=== PATIENT | male | born 1975 | race Caucasian/White ===

== ENCOUNTER 2018-11-15 19:59 | Emergency (ER) | payer SELFPAY ==
[2018-11-15 20:05] VITALS: BP 147/86
== END 2018-11-15 21:28 | disposition left against medical advice (07) ==
LOC: ED 19:59
DX: R42 Dizziness and giddiness (principal); Z53.21 Procedure and treatment not carried out due to patient leaving prior to being seen by health care provider

== ENCOUNTER 2019-08-27 20:14 | Emergency (ER) | payer SELFPAY ==
--- NOTE | 2019-08-27 20:24 | UC ---
FLU HPI - HPI Summary HPI Summary: 43yo male presenting with sore throat, body aches, chills, and cough with sternal chest discomfort x3 days. Patient notes subjective fevers. Denies sob and wheezing. States chest discomfort worse with deep breaths and coughing. Denies discomfort currently. Notes significant fatigue and decreased appetite. Denies n/v/d. States his significant other was diagnosed with URI a few weeks ago. Denies other ill contacts. Denies known exposure to covid 19. Patient works at [employer]. Notes h/o asthma as child that he states he grew out of. Smokes 1.5 packs every two days and vapes throughout the day everyday. - History of Current Complaint Stated Complaint: SORE THROAT, COUGH Hx Obtained From: Patient Pain Intensity: 5 Pain Scale Used: 0-10 Numeric - Allergy/Home Medications Allergies/Adverse Reactions: Allergies Allergy/AdvReac Type Severity Reaction Status Date / Time No Known Allergies Allergy Verified 08/27/19 20:18 Home Medications: Home Medications Azithromycin 250 mg PO DAILY #4 tablet 08/27/19 [Rx] PMH/Surg Hx/FS Hx/Imm Hx Respiratory History: Asthma - as a child - Surgical History Surgical History: Yes Surgery Procedure, Year, and Place: left wrist - Family History Known Family History: Positive: Non-Contributory - Social History Alcohol Use: Occasionally Substance Use Type: None Smoking Status (MU): Heavy Every Day Tobacco Smoker Type: Cigarettes Amount Used/How Often: 1 pack daily Review of Systems All Other Systems Reviewed And Are Negative: Yes Constitutional: Positive: Fever - subjective, Chills, Fatigue ENT: Positive: Sore Throat, Sinus Congestion - mild Respiratory: Positive: Cough - productive yellow sputum, Other - mid sternal chest discomfort with deep breaths and coughing. Negative: Shortness Of Breath Cardiovascular: Positive: Negative Gastrointestinal: Positive: Negative Genitourinary: Positive: Negative Musculoskeletal: Positive: Myalgia Neurological/Mental Status: Positive: Headache Physical Exam - Summary Physical Exam Summary: Vital Signs Reviewed: Yes A+Ox3, no distress Eyes: Conjunctiva mildly injected b/l ENT: Hearing grossly normal, TM x 2 clear, moist, uvula midline, no exudate, mild pharyngeal erythema, no tonsillar swelling Neck: Positive: Supple, mild tonsillar node swelling Respiratory: Positive: No respiratory distress, No accessory muscle use + CTA throughout no w/r Cardiovascular: RRR nl s1, s2 no m/r Musculoskeletal Exam: CHU x 4 without difficulty, no TTP of sternum or ribs Neurological: Positive: Alert Psychological: Positive: age appropriate behavior Skin: Positive: no rash, no ecchymosis Vital Signs: Vital Signs (72 hours) 08/27/19 20:20 Temperature 98.8 F Pulse Rate 94 Respiratory 16 Rate Blood Pressure 115/63 (mmHg) O2 Sat by Pulse 98 Oximetry Lab Results 08/27/19 08/27/19 Range/Units 20:43 20:46 Influenza A (Rapid) Negative (Negative) Influenza B (Rapid) Negative (Negative) Group A Strep Rapid Negative (Negative) Flu Course/Dx - Course Course Of Treatment: Full PPE was used while assessing patient. Flu and strep tests were negative. I discussed results with the patient and informed him that he would receive the covid19 results within the next 3-5 days. I discussed self quarantining until results have been received and he otherwise advised by a healthcare provider. I provided the patient with an inhaler. I also treated with azithromycin for possible bacterial infection based on sputum production and chest discomfort. He received the first dose here in the urgent care with the rest of prescription sent to pharmacy for a family member to pickup driver for him. Instructed to go to the ED if he experiences any new or worsening symptoms including worsening shortness of breath/difficulty breathing. Patient voiced understanding and agreed with treatment plan. All questions answered to the best of my abilities. - Differential Dx/Diagnosis Differential Diagnosis/HQI/PQRI: Bronchitis, Influenza, Pneumonia, Upper Respiratory Infection, Other - covid 19 Provider Diagnosis: Flu-like symptoms Discharge ED - Sign-Out/Discharge Documenting (check all that apply): Patient Departure All imaging exams completed and their final reports reviewed: No Studies - Discharge Plan Condition: Stable Disposition: HOME Prescriptions: Azithromycin 250 mg PO DAILY #4 tablet Patient Education Materials: Viral Syndrome (ED) Forms: COVID-19 Tested & Isolation Referrals: Adan Sprague MD [Medical Doctor] - Additional Instructions: As discussed, your strep and flu tests were negative today. Take azithromycin as prescribed. You received the first dose at the urgent care tonight. Use the inhaler as needed for shortness of breath/wheezing. You have received testing for covid-19 and will be notified with the results within 3-5 days. You need to self-quarantine for the next 14 days unless otherwise advised by a healthcare provider. This means staying home and no contact with anyone who lives with you. You should not share your bedroom or bathroom if possible. You may continue with tylenol. Avoid ibuprofen (motrin) and other NSAIDs as this has been shown to possibly exacerbate covid19 symptoms. Increase your fluid intake. Go to the nearest emergency room or call 911 if you experience new or worsening symptoms. - Billing Disposition and Condition Condition: STABLE Disposition: Home
[2019-08-27 20:57] LABS: Influenza A Molecular Negative (Negative); Influenza B Molecular Negative (Negative)
[2019-08-27 21:00] VITALS: BP 115/63
[2019-08-27] MEDS ORDERED: Albuterol HFA INHALER* 8 gm MDI INH ONE (21:20)
[2019-08-27] MEDS ORDERED: Azithromycin TAB* 250 MG PO ONE (21:20)
== END 2019-08-27 21:32 | disposition home or self-care (01) ==
LOC: UCCORT 20:14
DX: J02.9 Acute pharyngitis, unspecified (principal); M79.10 Myalgia, unspecified site; R05 Cough; R07.89 Other chest pain; R50.9 Fever, unspecified; Z20.828 Contact with and (suspected) exposure to other viral communicable diseases; F17.210 Nicotine dependence, cigarettes, uncomplicated
CPT/HCPCS: 87651; 99212; A9270-GY; G0463; U0002